=== PATIENT | female | born 1995 | race Caucasian/White ===

== ENCOUNTER 2017-05-02 18:25 | Emergency (ER) | payer BC ==
--- NOTE | 2017-05-02 19:47 | EDM.PDOCBH ---
ED HPI GENERAL MEDICAL PROBLEM - General Chief Complaint: Behavioral/Psych Stated Complaint: DEPRESSION Time Seen by Provider: 05/02/17 19:16 Source of Information: Reports: Patient History Limitations: Reports: No Limitations - History of Present Illness INITIAL COMMENTS - FREE TEXT/NARRATIVE: The patient states that she has been feeling depressed for at least 2 years, waxing and waning, but recently he is feeling overwhelmed. She states that she is feeling suicidal, but does not have a plan. She states that she has not recently attempted to harm herself. The patient mentions that she is on her menstrual period, and her depression tends to worsen when she is on her period. She states that she has attempted suicide on 3 prior occasions, all about 2-3 years ago, two by taking a bottle of aspirin, one by taking a number of sleeping pills. On each occasion, nothing happened to the patient, and her attempts were not brought to anyone's attention. She states that her uncle in [place] is a psychotherapist. She states that she and he have talked, but he did not give her any psychiatric diagnoses, and did not recommend any treatment. The patient states that she has not spoken to any other mental health professional, and therefore has no prior psychiatric diagnosis. No prior psychiatric hospitalizations. The patient does not have a PCP. - Related Data Allergies Allergy/AdvReac Type Severity Reaction Status Date / Time No Known Allergies Allergy Verified 05/02/17 21:51 Home Meds: Home Meds FLUoxetine [PROzac] 20 mg PO QAM #15 tab 05/02/17 [Rx] Past Medical History - Past Surgical History HEENT Surgical History: Reports: Naso-Sinus Surgery (Deviated septum), Tonsillectomy Social & Family History - Family History Family Medical History: Noncontributory Cardiac: Reports: CAD Psychiatric: Reports: Depression Endocrine/Metabolic: Reports: Diabetes, type II - Tobacco Use Smoking Status *Q: Current Every Day Smoker Years of Tobacco use: 6 Packs/Tins Daily: 0.5 - Caffeine Use Caffeine Use: Reports: Soda - Alcohol Use Alcohol Use History: Yes Alcohol Use Frequency: Binges (on weekends) - Recreational Drug Use Recreational Drug Use: Yes Drug Use in Last 12 Months: Yes Recreational Drug Type: Reports: Cocaine (occasionally), Marijuana/Hashish ( regularly) - Living Situation & Occupation Living situation: Reports: Single, with Significant Other (Boyfriand) Occupation: Employed ([employer]) ED ROS GENERAL - Review of Systems Review Of Systems: ROS reveals no pertinent complaints other than HPI. ED EXAM, BEHAVIORAL HEALTH - Physical Exam Exam: See Below Exam Limited By: No Limitations General Appearance: Alert, WD/WN, No Apparent Distress Eye Exam: Bilateral Eye: Normal Inspection Ears: Normal External Exam, Hearing Grossly Normal Nose: Normal Inspection, No Blood Throat/Mouth: Normal Inspection, Normal Lips, Normal Voice, No Airway Compromise Head: Atraumatic, Normocephalic Neck: Normal Inspection, Full Range of Motion Respiratory/Chest: No Respiratory Distress, Lungs Clear, Normal Breath Sounds, No Accessory Muscle Use Cardiovascular: Normal Peripheral Pulses, Regular Rate, Rhythm, No Gallop, No JVD, No Murmur, No Rub GI/Abdominal: Normal Bowel Sounds, Soft, Non-Tender, No Organomegaly, No Distention, No Abnormal Bruit, No Mass (Female) Exam: Deferred Rectal (Female) Exam: Deferred Back Exam: Normal Inspection, Full Range of Motion, NT Extremities: Normal Inspection, Normal Range of Motion, No Pedal Edema, Normal Capillary Refill Neurological: Alert, Normal Cognition, No Motor/Sensory Deficits, Oriented x 3 Psychiatric: Normal Affect, Tearful (briefly) Skin Exam: Warm, Dry, Intact, Normal color, No rash EKG INTERPRETATION EKG Date: 05/02/17 Time: 19:33 Rhythm: NSR Rate (Beats/Min): 70 [place]: Normal P-Wave: Present QRS: Normal ST-T: Normal QT: Normal Comparison: NA - No Prior EKG COURSE, BEHAVIORAL HEALTH COMP - Course Vital Signs: Last Vital Signs Temp 36.7 C 05/02/17 18:36 Pulse 78 05/02/17 18:36 Resp 16 05/02/17 18:36 BP 139/84 05/02/17 18:36 Pulse Ox 100 05/02/17 18:36 Orders, Labs, Meds: Active Orders 24 hr Category Date Time Status EKG Documentation Completion [RC] STAT Care 05/02/17 19:17 Active Laboratory Tests 05/02/17 05/02/17 05/02/17 Range/Units 19:32 19:32 19:32 WBC 9.75 (3.98-10.04) K/mm3 RBC 4.29 (3.98-5.22) M/mm3 Hgb 13.5 (11.2-15.7) gm/L Hct 40.4 (34.1-44.9) % MCV 94.2 (79.4-94.8) fl MCH 31.5 (25.6-32.2) pg MCHC 33.4 (32.2-35.5) g/dl RDW Std Deviation 43.2 (36.4-46.3) fL Plt Count 291 (182-369) K/mm3 MPV 10.1 (9.4-12.3) fl Neutrophils % (Manual) 71 H (40-60) % Band Neutrophils % 1 (0-10) % Lymphocytes % (Manual) 24 (20-40) % Atypical Lymphs % 0 % Monocytes % (Manual) 2 (2-10) % Eosinophils % (Manual) 2 (0.7-5.8) % Basophils % (Manual) 0 L (0.1-1.2) Platelet Estimate Adequate RBC Morph Comment Normal Sodium 140 (136-145) mEq/L Potassium 3.6 (3.5-5.1) mEq/L Chloride 104 (98-107) mEq/L Carbon Dioxide 25 (21-32) mEq/L Anion Gap 14.6 (5-15) BUN 9 (7-18) mg/dL Creatinine 0.8 (0.55-1.02) mg/dL Est Cr Clr Drug Dosing 121.49 mL/min Estimated GFR (MDRD) > 60 (>60) mL/min BUN/Creatinine Ratio 11.3 L (14-18) Glucose 87 (74-106) mg/dL Calcium 8.6 (8.5-10.1) mg/dL Total Bilirubin 1.3 H (0.2-1.0) mg/dL AST 10 L (15-37) U/L ALT 13 L (14-59) U/L Alkaline Phosphatase 68 (46-116) U/L Total Protein 7.4 (6.4-8.2) g/dl Albumin 3.9 (3.4-5.0) g/dl Globulin 3.5 gm/dL Albumin/Globulin Ratio 1.1 (1-2) TSH 3rd Generation 1.483 (0.516-4.13) uIU/mL Urine HCG, Qual (NEGATIVE) Salicylates < 0.2 L (2.8-20) mg/dL Urine Opiates Screen (NEGATIVE) Ur Buprenorphine Scrn (NEGATIVE) Ur Oxycodone Screen (NEGATIVE) Urine Methadone Screen (NEGATIVE) Ur Propoxyphene Screen (NEGATIVE) Acetaminophen 0 L (10-30) ug/mL Ur Barbiturates Screen (NEGATIVE) Ur Tricyclics Screen (NEGATIVE) Ur Phencyclidine Scrn (NEGATIVE) Ur Amphetamine Screen (NEGATIVE) U Methamphetamines Scrn (NEGATIVE) U Benzodiazepines Scrn (NEGATIVE) U Cocaine Metab Screen (NEGATIVE) U Marijuana (THC) Screen (NEGATIVE) Ethyl Alcohol 0.00 (0.00) gm% 05/02/17 05/02/17 Range/Units 19:46 19:46 WBC (3.98-10.04) K/mm3 RBC (3.98-5.22) M/mm3 Hgb (11.2-15.7) gm/L Hct (34.1-44.9) % MCV (79.4-94.8) fl MCH (25.6-32.2) pg MCHC (32.2-35.5) g/dl RDW Std Deviation (36.4-46.3) fL Plt Count (182-369) K/mm3 MPV (9.4-12.3) fl Neutrophils % (Manual) (40-60) % Band Neutrophils % (0-10) % Lymphocytes % (Manual) (20-40) % Atypical Lymphs % % Monocytes % (Manual) (2-10) % Eosinophils % (Manual) (0.7-5.8) % Basophils % (Manual) (0.1-1.2) Platelet Estimate RBC Morph Comment Sodium (136-145) mEq/L Potassium (3.5-5.1) mEq/L Chloride (98-107) mEq/L Carbon Dioxide (21-32) mEq/L Anion Gap (5-15) BUN (7-18) mg/dL Creatinine (0.55-1.02) mg/dL Est Cr Clr Drug Dosing mL/min Estimated GFR (MDRD) (>60) mL/min BUN/Creatinine Ratio (14-18) Glucose (74-106) mg/dL Calcium (8.5-10.1) mg/dL Total Bilirubin (0.2-1.0) mg/dL AST (15-37) U/L ALT (14-59) U/L Alkaline Phosphatase (46-116) U/L Total Protein (6.4-8.2) g/dl Albumin (3.4-5.0) g/dl Globulin gm/dL Albumin/Globulin Ratio (1-2) TSH 3rd Generation (0.516-4.13) uIU/mL Urine HCG, Qual Negative (NEGATIVE) Salicylates (2.8-20) mg/dL Urine Opiates Screen Negative (NEGATIVE) Ur Buprenorphine Scrn Negative (NEGATIVE) Ur Oxycodone Screen Negative (NEGATIVE) Urine Methadone Screen Negative (NEGATIVE) Ur Propoxyphene Screen Negative (NEGATIVE) Acetaminophen (10-30) ug/mL Ur Barbiturates Screen Negative (NEGATIVE) Ur Tricyclics Screen Negative (NEGATIVE) Ur Phencyclidine Scrn Negative (NEGATIVE) Ur Amphetamine Screen Negative (NEGATIVE) U Methamphetamines Scrn Negative (NEGATIVE) U Benzodiazepines Scrn Negative (NEGATIVE) U Cocaine Metab Screen Presumptive positive H (NEGATIVE) U Marijuana (THC) Screen Presumptive positive H (NEGATIVE) Ethyl Alcohol (0.00) gm% Medical Clearance: 05/02/17 20:14 Case discussed at length with Dr. Perla. While the patient is depressed, she is not actively suicidal, therefore he does not believe that she needs to be psychiatrically admitted at this time. He would like us to start the patient on Prozac 20 mg QAM starting tomorrow morning, and have her follow-up with a PCP while she is waiting to get in to see a psychologist or psychiatrist. As the patient does not have a PCP, I will refer her to Dr. Gema Gutierrez. 05/02/17 20:33 The above plan was discussed with the patient and her boyfriend. The patient does not want psychiatric hospitalization. She is amenable to starting on Prozac tomorrow, following up with Dr. Gema Gutierrez tomorrow, and we will give her a referral to [facility], as well. I will write a note for work for the patient, so that she can be off tomorrow, in order to get all of this done. Departure - Departure Time of Disposition: 20:16 Disposition: Home, Self-Care 01 Condition: Good Clinical Impression: Depression - Discharge Information Prescriptions: FLUoxetine [PROzac] 20 mg PO QAM #15 tab Instructions: Coping With Depression, Teen, Persistent Depressive Disorder, Adult, [id number], Major Depressive Disorder, Adult Referrals: PCP,None [Primary Care Provider] - Gema Gutierrez MD [Physician] - Forms: ED Department Discharge, ED Return to Work/School Form Additional Instructions: You were seen in the emergency room for feeling depressed and overwhelmed. Case was discussed with the Psychiatrist Dr. Perla. He recommended that you be started on the antidepressant Prozac, 20 mg each morning, starting tomorrow morning, 05/03/2017. A prescription for [facility]zac [facility] sent [facility] located in the [facility] grocery store. Dr. Perla would also like you to follow-up with Dr. Gema Gutierrez as a primary care physician. Dr. Gutierrez's clinic is a same-day clinic - you can be seen the same day that you make an appointment. Dr. Perla would also like you to follow-up at [place] [address] [facility] [place] [phone] If any other problems, including worsening depression or feeling suicidal, please do not hesitate to return to the ER. - My Orders Last 24 Hours: My Active Orders 05/02/17 19:17 EKG Documentation Completion [RC] STAT - Assessment/Plan Last 24 Hours: My Active Orders 05/02/17 19:17 EKG Documentation Completion [RC] STAT
[2017-05-02 20:06] LABS: ACETAMINOPHEN 0 ug/mL (10-30)
== END 2017-05-02 20:50 | disposition home or self-care (01) ==
LOC: JD.ED 18:25
DX: F32.9 Major depressive disorder, single episode, unspecified (principal)
CPT/HCPCS: 36415; 80053; 80306; 81025; 84443; 85025; 93005; 99284; G0480; 93010